=== PATIENT | male | born 1970 | race Caucasian/White ===

== ENCOUNTER 2017-08-09 23:11 | Emergency (ER) | payer SELFPAY, OTHER ==
[2017-08-09] MEDS: hydrALAzine 20 MG INJ IV (23:58)
[2017-08-10 00:03] LABS: ADD MAN DIFF? NO
[2017-08-10 00:05] LABS: BASOPHILS % 0.4 % (0.0-2.0); EOSINOPHILS # 0.2 10^3/ul (0.0-0.5); EOSINOPHILS % 2.5 % (0.0-7.0); HEMATOCRIT 37.6 % (42.0-52.0); HEMOGLOBIN 13.2 g/dl (14.0-18.0); LYMPHOCYTES # 3.5 10^3/ul (0.8-2.9); LYMPHOCYTES % 41.4 % (15.0-51.0); MEAN CORPUSCULAR HEMOGLOBIN 30.3 pg (29.0-33.0); MEAN CORPUSCULAR HGB CONC 35.1 g/dl (32.0-37.0); MEAN CORPUSCULAR VOLUME 86.2 fl (82.0-101.0); MONOCYTE # 0.8 10^3/ul (0.3-0.9); MONOCYTES % 9.4 % (0.0-11.0); NEUTROPHIL # 3.9 10^3/ul (1.6-7.5); NEUTROPHILS % 46.1 % (39.0-77.0); PLATELET COUNT 243 10^3/UL (140-415); RED BLOOD COUNT 4.36 10^6/ul (4.70-6.10); RED CELL DISTRIBUTION WIDTH 12.2 % (11.5-14.5)
[2017-08-10 00:05] LABS: WHITE BLOOD COUNT 8.5 10^3/ul (4.8-10.8)
[2017-08-10 00:22] LABS: ALANINE AMINOTRANSFERASE 32 IU/L (13-69); ALBUMIN 4.2 g/dl (3.3-4.9); ALBUMIN/GLOBULIN RATIO 1.35; ALKALINE PHOSPHATASE 112 IU/L (42-121); ANION GAP 12 (8-16); ASPARTATE AMINO TRANSFERASE 27 IU/L (15-46); BILIRUBIN,INDIRECT 0.1 mg/dl (0-1.1); BILIRUBIN,TOTAL 0.1 mg/dl (0.2-1.3); BLOOD UREA NITROGEN 21 mg/dl (7-20); CALCIUM 9.4 mg/dl (8.4-10.2); CARBON DIOXIDE 26 mmol/L (21-31); CHLORIDE 106 mmol/L (97-110); CREATININE 1.21 mg/dl (0.61-1.24); GLUCOSE 100 mg/dl (70-220); POTASSIUM 3.1 mmol/L (3.5-5.1); SODIUM 141 mmol/L (135-144); TOTAL PROTEIN 7.3 g/dl (6.1-8.1)
[2017-08-10 00:39] LABS: B-TYPE NATRIURETIC PEPTIDE 155 PG/ML (0-125); TROPONIN-I 0.023 ng/ml (0.000-0.120)
[2017-08-10 00:41] LABS: INR 0.85; PROTIME 11.7 Sec (11.9-14.9); PT RATIO 0.9
[2017-08-10 00:42] LABS: PARTIAL THROMBOPLASTIN TIME 28.8 Sec (25.0-35.0)
== END 2017-08-10 01:46 | disposition home or self-care (01) ==
LOC: E/R 08-10 01:46
DX: I10 Essential (primary) hypertension (principal); R07.9 Chest pain, unspecified
CPT/HCPCS: 36415; 70450; 71045; 80053; 83880; 84484; 85025; 85610; 85730; 93005; 96374; 99285-25

== ENCOUNTER 2018-08-14 11:21 | Inpatient (IN) | payer OTHER, BC ==
[2018-08-14] MEDS: ONDANSETRON 4 MG INJ IV ×2 (12:12→17:02)
[2018-08-14 12:13] LABS: ADD MAN DIFF? NO
[2018-08-14] MEDS: morphine 4 MG/ML VIAL IV ×2 (12:15→13:00)
[2018-08-14 12:27] LABS: BASOPHILS % 0.2 % (0.0-2.0); EOSINOPHILS % 0.2 % (0.0-7.0); HEMATOCRIT 41.8 % (42.0-52.0); HEMOGLOBIN 14.5 g/dl (14.0-18.0); LYMPHOCYTES # 1.7 10^3/ul (0.8-2.9); LYMPHOCYTES % 11.9 % (15.0-51.0); MEAN CORPUSCULAR HGB CONC 34.7 g/dl (32.0-37.0); MEAN CORPUSCULAR VOLUME 86.5 fl (82.0-101.0); MEAN PLATELET VOLUME 10.3 fl (7.4-10.4); MONOCYTE # 0.7 10^3/ul (0.3-0.9); MONOCYTES % 4.7 % (0.0-11.0); NEUTROPHIL # 11.5 10^3/ul (1.6-7.5); NEUTROPHILS % 82.5 % (39.0-77.0); PLATELET COUNT 268 10^3/UL (140-415); RED BLOOD COUNT 4.83 10^6/ul (4.70-6.10); RED CELL DISTRIBUTION WIDTH 12.5 % (11.5-14.5)
[2018-08-14 12:35] LABS: ALANINE AMINOTRANSFERASE 33 IU/L (13-69); ALBUMIN 4.7 g/dl (3.3-4.9); ALKALINE PHOSPHATASE 93 IU/L (42-121); ANION GAP 11 (5-13); ASPARTATE AMINO TRANSFERASE 32 IU/L (15-46); BILIRUBIN,INDIRECT 0.3 mg/dl (0-1.1); BILIRUBIN,TOTAL 0.3 mg/dl (0.2-1.3); BLOOD UREA NITROGEN 19 mg/dl (7-20); CALCIUM 9.1 mg/dl (8.4-10.2); CARBON DIOXIDE 27 mmol/L (21-31); CHLORIDE 105 mmol/L (97-110); Estimated GFR 54 mL/min (>60); GLUCOSE 138 mg/dl (70-220); LIPASE 69 U/L (23-300); POTASSIUM 4.1 mmol/L (3.5-5.1); SODIUM 143 mmol/L (135-144); TOTAL PROTEIN 8.3 g/dl (6.1-8.1)
[2018-08-14 12:44] LABS: URINE BLOOD (Dip) POC 2+ (NEGATIVE); URINE KETONES (Dip) POC Negative (NEGATIVE); URINE LEUKOCYTE EST (Dip) POC Negative (NEGATIVE); URINE NITRITE (Dip) POC Negative (NEGATIVE); URINE TOTAL PROTEIN POC 1+ (NEGATIVE)
[2018-08-14] MEDS: LABETALOL HCL 20MG INJ IV (13:35)
[2018-08-14] MEDS: KETOROLAC 30 MG INJ IV (14:00)
[2018-08-14] MEDS ORDERED: ACETAMINOPHEN 650 MG SUPP PR (14:30)
[2018-08-14] MEDS ORDERED: morphine 2 MG INJ IV (14:30)
[2018-08-14] MEDS ORDERED: NACL 0.9% 3 ML SYG IV (14:30)
[2018-08-14] MEDS ORDERED: HYDROCODONE/APAP (5/325) TAB PO (14:30)
[2018-08-14] MEDS ORDERED: ACETAMINOPHEN 325 MG TAB PO (14:30)
[2018-08-14] MEDS ORDERED: hydrALAzine 20 MG INJ (15:43)
[2018-08-14] MEDS: hydrALAzine 20 MG INJ IV (15:45)
[2018-08-14] MEDS ORDERED: ONDANSETRON 4 MG INJ (17:01)
[2018-08-14] MEDS: HYDROmorphONE 1 MG/ML SYG IV (17:02)
[2018-08-14] MEDS ORDERED: HYDROmorphONE 1 MG/ML SYG (17:02)
[2018-08-14] MEDS: SOD CHLORIDE 0.9% 1,000 ML IV (18:32)
[2018-08-14] MEDS: FAMOTIDINE 20 MG INJ IV (18:33)
[2018-08-14] MEDS ORDERED: CEFTRIAXONE 1 GM INJ IVPB (19:30)
[2018-08-14 19:36] LABS: INR 0.85; PROTIME 11.7 Sec (11.9-14.9); PT RATIO 0.9
[2018-08-14] MEDS: TAMSULOSIN (SR) 0.4 MG CAP PO (20:07)
[2018-08-14] MEDS: CEFTRIAXONE 1 GM/NS 50 ML IVPB (20:07)
[2018-08-14] MEDS: AMLODIPINE 5 MG TAB PO (20:08)
[2018-08-15] MEDS: HYDROmorphONE 1 MG/ML SYG IV ×2 (01:54→13:42)
[2018-08-15] MEDS: SOD CHLORIDE 0.9% 1,000 ML IV ×3 (02:40→19:43)
[2018-08-15 05:32] LABS: ADD MAN DIFF? NO
[2018-08-15 05:49] LABS: WHITE BLOOD COUNT 10.5 10^3/ul (4.8-10.8)
[2018-08-15 05:49] LABS: BASOPHILS % 0.2 % (0.0-2.0); EOSINOPHILS % 0.3 % (0.0-7.0); HEMATOCRIT 35.8 % (42.0-52.0); HEMOGLOBIN 12.1 g/dl (14.0-18.0); LYMPHOCYTES # 2.4 10^3/ul (0.8-2.9); LYMPHOCYTES % 23.2 % (15.0-51.0); MEAN CORPUSCULAR HEMOGLOBIN 29.5 pg (29.0-33.0); MEAN CORPUSCULAR HGB CONC 33.8 g/dl (32.0-37.0); MEAN CORPUSCULAR VOLUME 87.3 fl (82.0-101.0); MEAN PLATELET VOLUME 10.7 fl (7.4-10.4); MONOCYTES % 9.3 % (0.0-11.0); NEUTROPHILS % 66.6 % (39.0-77.0); PLATELET COUNT 223 10^3/UL (140-415); RED CELL DISTRIBUTION WIDTH 12.7 % (11.5-14.5)
[2018-08-15 06:01] LABS: HEMOGLOBIN A1C 5.7 % (0-5.9)
[2018-08-15 06:18] LABS: ALANINE AMINOTRANSFERASE 27 IU/L (13-69); ALBUMIN 3.7 g/dl (3.3-4.9); ALBUMIN/GLOBULIN RATIO 1.42; ALKALINE PHOSPHATASE 58 IU/L (42-121); ANION GAP 10 (5-13); ASPARTATE AMINO TRANSFERASE 25 IU/L (15-46); BILIRUBIN,INDIRECT 0.5 mg/dl (0-1.1); BILIRUBIN,TOTAL 0.5 mg/dl (0.2-1.3); BLOOD UREA NITROGEN 25 mg/dl (7-20); CALCIUM 8.7 mg/dl (8.4-10.2); CARBON DIOXIDE 26 mmol/L (21-31); CHLORIDE 102 mmol/L (97-110); CHOL/HDL RATIO 4.8 RATIO; CHOLESTEROL 169 mg/dl (100-200); CREATININE 1.87 mg/dl (0.61-1.24); Estimated GFR 39 mL/min (>60); GLUCOSE 102 mg/dl (70-220); HDL CHOLESTEROL 35 mg/dl (27-67); LDL CHOLESTEROL,CALCULATED 105 mg/dl; MAGNESIUM 2.1 mg/dl (1.7-2.5); PHOSPHORUS 5.8 mg/dl (2.5-4.9); POTASSIUM 3.9 mmol/L (3.5-5.1); SODIUM 138 mmol/L (135-144); TOTAL PROTEIN 6.3 g/dl (6.1-8.1); TRIGLYCERIDES 145 mg/dl (0-149)
[2018-08-15 06:25] LABS: FREE THYROXINE INDEX (Calc) 2.83 ug/ml (0.65-3.89); T3 UPTAKE 31.4 % (23.5-40.5)
[2018-08-15] MEDS: FAMOTIDINE 20 MG INJ IV (09:44)
[2018-08-15] MEDS: AMLODIPINE 5 MG TAB PO (09:45)
[2018-08-15 12:47] LABS: ADD UMIC YES; UR ASCORBIC ACID NEGATIVE (NEGATIVE); UR BILIRUBIN (Dip) NEGATIVE (NEGATIVE); UR BLOOD (Dip) 2+ mg/dL (NEGATIVE); UR CLARITY CLEAR (CLEAR); UR COLOR STRAW (YELLOW); UR GLUCOSE (Dip) NEGATIVE (NEGATIVE); UR KETONES (Dip) NEGATIVE (NEGATIVE); UR LEUKOCYTE ESTERASE (Dip) NEGATIVE Leu/ul (NEGATIVE); UR NITRITE (Dip) NEGATIVE (NEGATIVE); UR RBC 3 /HPF (0-5); UR SPECIFIC GRAVITY (Dip) 1.008 (1.003-1.030); UR TOTAL PROTEIN (Dip) NEGATIVE (NEGATIVE); UR UROBILINOGEN (Dip) NEGATIVE (NEGATIVE); UR WBC 1 /HPF (0-5)
[2018-08-15 13:38] LABS: CREATININE,URINE RANDOM 50.65 mg/dl (20-370)
[2018-08-15 13:38] LABS: SODIUM,URINE RANDOM 67 mmol/L (30-90)
[2018-08-15] MEDS: hydrALAzine 20 MG INJ IV ×2 (15:12→20:52)
[2018-08-15] MEDS: LABETALOL HCL 20MG INJ IV (19:42)
[2018-08-15] MEDS: CEFTRIAXONE 1 GM/NS 50 ML IVPB (19:44)
[2018-08-15] MEDS: TAMSULOSIN (SR) 0.4 MG CAP PO (20:49)
[2018-08-15] MEDS: AMLODIPINE 10 MG TAB PO (20:49)
[2018-08-16] MEDS: SOD CHLORIDE 0.9% 1,000 ML IV ×5 (01:29→21:20)
[2018-08-16] MEDS: HYDROmorphONE 1 MG/ML SYG IV ×6 (04:41→23:30)
[2018-08-16 06:55] LABS: ANION GAP 10 (5-13); BLOOD UREA NITROGEN 25 mg/dl (7-20); CALCIUM 8.7 mg/dl (8.4-10.2); CARBON DIOXIDE 25 mmol/L (21-31); CHLORIDE 106 mmol/L (97-110); CREATININE 1.46 mg/dl (0.61-1.24); Estimated GFR 52 mL/min (>60); GLUCOSE 114 mg/dl (70-220); MAGNESIUM 2.3 mg/dl (1.7-2.5); PHOSPHORUS 4.4 mg/dl (2.5-4.9); POTASSIUM 3.7 mmol/L (3.5-5.1); SODIUM 141 mmol/L (135-144)
[2018-08-16] MEDS: FAMOTIDINE 20 MG INJ IV (08:31)
[2018-08-16] MEDS: AMLODIPINE 10 MG TAB PO ×2 (08:32→21:21)
[2018-08-16] MEDS: hydrALAzine 20 MG INJ IV (11:53)
[2018-08-16] MEDS: ONDANSETRON 4 MG INJ IV (12:28)
[2018-08-16 15:09] LABS: CREATININE, RANDOM URINE 53 mg/dL (20-320); MICROALBUMIN 2.8 mg/dL; MICROALBUMIN/CREATININE RATIO 53 (<30)
[2018-08-16] MEDS ORDERED: DIPHENHYDRAMINE 50 MG INJ IV (18:00)
[2018-08-16] MEDS ORDERED: MEPERIDINE 25 MG INJ IV (18:00)
[2018-08-16] MEDS ORDERED: ONDANSETRON 4 MG INJ IV (18:00)
[2018-08-16] MEDS ORDERED: HYDROmorphONE 1 MG/5 ML IV SYRINGE IV ×3 (18:00)
[2018-08-16] MEDS ORDERED: LABETALOL HCL 20MG INJ IV (18:00)
[2018-08-16] MEDS ORDERED: OXYCODONE/ACETAMINOPHEN (5/325) TAB PO ×2 (18:00)
[2018-08-16] MEDS ORDERED: hydrALAzine 20 MG INJ IV (18:00)
[2018-08-16] MEDS ORDERED: FENTAnyl 50 MCG/ML VIAL IV ×3 (18:00)
[2018-08-16] MEDS ORDERED: PROPOFOL 40 ML (19:30)
[2018-08-16] MEDS ORDERED: EPHEDrine 25 MG/5 ML SYG ×2 (19:30→19:31)
[2018-08-16] MEDS ORDERED: SUCCINYLCHOLINE CHLORIDE 100 MG/5 ML SYG IV (19:30)
[2018-08-16] MEDS ORDERED: FENTAnyl 50 MCG/ML VIAL (19:30)
[2018-08-16] MEDS ORDERED: MIDAZOLAM 1 MG/ML 2 ML INJ (19:30)
[2018-08-16] MEDS ORDERED: CEFAZOLIN 1 GM INJ (19:30)
[2018-08-16] MEDS ORDERED: ONDANSETRON 4 MG INJ (19:30)
[2018-08-16] MEDS ORDERED: METOPROLOL 5 MG INJ (19:31)
[2018-08-16] MEDS ORDERED: METOCLOPRAMIDE 10 MG INJ (19:31)
[2018-08-16] MEDS ORDERED: HYDROCODONE/APAP (5/325) TAB PO (20:00)
[2018-08-16] MEDS: CEFTRIAXONE 1 GM/NS 50 ML IVPB (21:20)
[2018-08-16] MEDS: TAMSULOSIN (SR) 0.4 MG CAP PO (21:20)
[2018-08-17] MEDS: BISACODYL 10 MG SUPP PR (06:02)
[2018-08-17] MEDS: MAGNESIUM HYDROXIDE 30ML CUP PO (06:02)
[2018-08-17 06:14] LABS: ADD MAN DIFF? NO
[2018-08-17 06:19] LABS: BASOPHILS % 0.2 % (0.0-2.0); EOSINOPHILS % 0.1 % (0.0-7.0); HEMATOCRIT 38.1 % (42.0-52.0); HEMOGLOBIN 12.9 g/dl (14.0-18.0); LYMPHOCYTES # 2.2 10^3/ul (0.8-2.9); MEAN CORPUSCULAR HEMOGLOBIN 30.1 pg (29.0-33.0); MEAN CORPUSCULAR HGB CONC 33.9 g/dl (32.0-37.0); MEAN CORPUSCULAR VOLUME 88.8 fl (82.0-101.0); MEAN PLATELET VOLUME 10.3 fl (7.4-10.4); MONOCYTES % 10.3 % (0.0-11.0); NEUTROPHIL # 6.7 10^3/ul (1.6-7.5); NEUTROPHILS % 67.1 % (39.0-77.0); PLATELET COUNT 219 10^3/UL (140-415); RED BLOOD COUNT 4.29 10^6/ul (4.70-6.10); RED CELL DISTRIBUTION WIDTH 12.7 % (11.5-14.5)
[2018-08-17 06:49] LABS: ANION GAP 13 (5-13); BLOOD UREA NITROGEN 26 mg/dl (7-20); CALCIUM 8.7 mg/dl (8.4-10.2); CARBON DIOXIDE 26 mmol/L (21-31); CHLORIDE 106 mmol/L (97-110); CREATININE 1.46 mg/dl (0.61-1.24); Estimated GFR 52 mL/min (>60); GLUCOSE 102 mg/dl (70-220); MAGNESIUM 2.2 mg/dl (1.7-2.5); PHOSPHORUS 5.1 mg/dl (2.5-4.9); POTASSIUM 3.5 mmol/L (3.5-5.1); SODIUM 145 mmol/L (135-144)
[2018-08-17] MEDS: SOD CHLORIDE 0.9% 1,000 ML IV (07:21)
[2018-08-17] MEDS: AMLODIPINE 10 MG TAB PO ×2 (08:34→20:28)
[2018-08-17] MEDS: FAMOTIDINE 20 MG INJ IV (08:34)
[2018-08-17] MEDS: OXYCODONE/ACETAMINOPHEN (10/325) TAB PO (13:26)
[2018-08-17] MEDS: CEFTRIAXONE 1 GM/NS 50 ML IVPB (20:27)
[2018-08-17] MEDS: TAMSULOSIN (SR) 0.4 MG CAP PO (20:27)
[2018-08-17] MEDS: HYDROmorphONE 1 MG/ML SYG IV (21:31)
[2018-08-17] MEDS: DOCUSATE SODIUM 100 MG CAP PO (21:31)
[2018-08-18] MEDS: OXYCODONE/ACETAMINOPHEN (10/325) TAB PO ×2 (06:14→14:59)
[2018-08-18 06:20] LABS: ADD MAN DIFF? NO
[2018-08-18 06:24] LABS: WHITE BLOOD COUNT 8.5 10^3/ul (4.8-10.8)
[2018-08-18 06:24] LABS: BASOPHIL # 0.1 10^3/ul (0.0-0.1); BASOPHILS % 0.6 % (0.0-2.0); EOSINOPHILS # 0.1 10^3/ul (0.0-0.5); EOSINOPHILS % 1.5 % (0.0-7.0); HEMATOCRIT 37.4 % (42.0-52.0); HEMOGLOBIN 12.5 g/dl (14.0-18.0); LYMPHOCYTES # 2.4 10^3/ul (0.8-2.9); LYMPHOCYTES % 27.8 % (15.0-51.0); MEAN CORPUSCULAR HEMOGLOBIN 29.6 pg (29.0-33.0); MEAN CORPUSCULAR HGB CONC 33.4 g/dl (32.0-37.0); MEAN CORPUSCULAR VOLUME 88.6 fl (82.0-101.0); MEAN PLATELET VOLUME 10.5 fl (7.4-10.4); MONOCYTE # 0.8 10^3/ul (0.3-0.9); MONOCYTES % 9.8 % (0.0-11.0); NEUTROPHIL # 5.1 10^3/ul (1.6-7.5); NEUTROPHILS % 60.2 % (39.0-77.0); PLATELET COUNT 228 10^3/UL (140-415); RED BLOOD COUNT 4.22 10^6/ul (4.70-6.10); RED CELL DISTRIBUTION WIDTH 12.2 % (11.5-14.5)
[2018-08-18 07:01] LABS: ANION GAP 10 (5-13); BLOOD UREA NITROGEN 25 mg/dl (7-20); CALCIUM 8.8 mg/dl (8.4-10.2); CARBON DIOXIDE 30 mmol/L (21-31); CHLORIDE 103 mmol/L (97-110); CREATININE 1.45 mg/dl (0.61-1.24); Estimated GFR 52 mL/min (>60); GLUCOSE 107 mg/dl (70-220); MAGNESIUM 2.4 mg/dl (1.7-2.5); PHOSPHORUS 3.8 mg/dl (2.5-4.9); POTASSIUM 3.7 mmol/L (3.5-5.1); SODIUM 143 mmol/L (135-144)
[2018-08-18] MEDS: FAMOTIDINE 20 MG INJ IV (08:59)
[2018-08-18] MEDS: AMLODIPINE 10 MG TAB PO (08:59)
== END 2018-08-18 15:10 | disposition home or self-care (01) | DRG 660 ==
LOC: E/R 11:21 → TEL 08-15 18:58 → PP2 14:02
PROC: 0TC78ZZ Extirpation of Matter from Left Ureter, Via Natural or Artificial Opening Endoscopic (ICD-10-PCS; principal; 2018-08-16 17:30)
PROC: 0T778DZ Dilation of Left Ureter with Intraluminal Device, Via Natural or Artificial Opening Endoscopic (ICD-10-PCS; 2018-08-16 17:30)
DX: N13.2 Hydronephrosis with renal and ureteral calculous obstruction (principal); R65.10 Systemic inflammatory response syndrome (SIRS) of non-infectious origin without acute organ dysfunction; N17.9 Acute kidney failure, unspecified; I12.9 Hypertensive chronic kidney disease with stage 1 through stage 4 chronic kidney disease, or unspecified chronic kidney disease; N18.9 Chronic kidney disease, unspecified; Z68.35 Body mass index [BMI] 35.0-35.9, adult; E78.5 Hyperlipidemia, unspecified; E66.9 Obesity, unspecified; D64.9 Anemia, unspecified; Z90.49 Acquired absence of other specified parts of digestive tract
CPT/HCPCS: 36415; 71045; 74018; 74176; 74430; 76775; 80048; 80053; 80061; 81001; 81003; 82043; 83036; 83690; 83735; 84100; 84155; 84300; 84436; 84443; 84479; 85025; 85610; 85730; 87086; 88300; 93005; 96374; 96375; 96376; 99285-25